=== PATIENT | male | born 1945 | race Caucasian/White ===

== ENCOUNTER 2017-01-23 18:10 | Emergency (ER) | payer MEDICARE, BC ==
[~2017-01-23] VITALS: Ht 182.9 cm; Wt 90.0 kg
[2017-01-23 18:11] VITALS: BP 140/93; TEMP 97.2
[2017-01-23] MEDS ORDERED: LIPITOR 10MG10 MG PO (18:18)
[2017-01-23] MEDS ORDERED: ZYLOPRIM 100MG100 MG PO (18:19)
[2017-01-23] MEDS ORDERED: PRINZIDE 12.5 M1 TA1 PO (18:19)
[2017-01-23 18:44] LABS: BASO % 0.4 % (0.0-2.0); EOS # 0.1 (0.0-0.7); EOS % 1.5 % (0-4.0); GRAN # 2.7 (1.4-6.5); GRAN % 58.3 % (42.2-75.2); HEMOGLOBIN 12.7 g/dl (13.5-18.0); LYMPH # 1.6 (1.2-3.4); LYMPH % 33.2 % (20.0-51.0); MEAN CELL VOLUME 99 fl (80.0-100.0); MEAN CORPUSCULAR HEMOGLOBIN 34 pg (27.0-31.0); MEAN CORPUSCULAR HGB CONC 35 g/dl (33.0-37.0); MONO # 0.3 (0.1-0.6); MONO % 6.2 % (1.7-9.3); PLATELET COUNT 137 K/mm3 (130-400); REDCELL DISTRIBUTION WIDTH-CV 12.9 % (11.5-14.5); WHITE BLOOD COUNT 4.7 K/mm3 (4.8-10.8)
[2017-01-23 18:48] LABS: HEMATOCRIT 36.5 % (42.0-52.0)
[2017-01-23 19:00] LABS: ALANINE AMINOTRANSFERASE 70 U/L (21-72); ALBUMIN 4.1 gm/dL (3.5-5.0); ALKALINE PHOSPHATASE 74 U/L (50-136); ANION GAP 15 mmol/L (7-16); BLOOD UREA NITROGEN 9 mg/dL (9-20); CALCIUM 9.1 mg/dL (8.4-10.2); CARBON DIOXIDE 23 mmol/L (22-30); CHLORIDE 99 mmol/L (98-107); CREATININE, serum 0.82 mg/dL (0.66-1.25); GLUCOSE 97 mg/dL (74-106); POTASSIUM 3.5 mmol/L (3.4-5.0); SODIUM 137 mmol/L (137-145)
[2017-01-23 19:05] LABS: C-REACTIVE PROTEIN < 0.5 mg/dL (0.0-0.9); LIPASE 3105 U/L (23-300)
[2017-01-23 19:09] LABS: TROPONIN-I < 0.012 ng/mL (0.000-0.034)
[2017-01-23 20:06] VITALS: PULSE 63
== END 2017-01-23 20:10 | disposition home or self-care (01) ==
LOC: COL.ER 18:10
PROVIDERS: Emergency Medicine
DX: K85.90 Acute pancreatitis without necrosis or infection, unspecified (principal); R07.9 Chest pain, unspecified; I10 Essential (primary) hypertension; E78.5 Hyperlipidemia, unspecified; F17.220 Nicotine dependence, chewing tobacco, uncomplicated

== ENCOUNTER → 2017-02-02 | Outpatient (CLI) | payer MEDICARE, BC ==
[~2017-02-02] MED LIST: LIPITOR 10MG10 MG PO; PRINZIDE 12.5 M1 TA1 PO; ZYLOPRIM 100MG100 MG PO
== END ==
LOC: COL.RAD 09:40
DX: K85.00 Idiopathic acute pancreatitis without necrosis or infection (principal); R74.8 Abnormal levels of other serum enzymes

== ENCOUNTER 2019-07-31 17:42 | Emergency (ER) | payer MEDICARE, BC ==
[~2019-07-31] VITALS: Ht 182.9 cm; Wt 90.9 kg
[2019-07-31 17:44] VITALS: TEMP 97.4
[2019-07-31] MEDS ORDERED: NORVASC2.5 MG PO (17:52)
[2019-07-31 19:17] LABS: PROTHROMBIN TIME 12.2 SECONDS (9.7-12.8)
[2019-07-31 19:22] LABS: BASO % 0.5 % (0.0-2.0); EOS % 0.6 % (0-4.0); HEMATOCRIT 35.6 % (42.0-52.0); HEMOGLOBIN 12.3 g/dl (13.5-18.0); LYMPH # 0.8 (1.2-3.4); LYMPH % 12.7 % (20.0-51.0); MEAN CELL VOLUME 99 fl (80.0-100.0); MEAN CORPUSCULAR HEMOGLOBIN 34 pg (27.0-31.0); MEAN CORPUSCULAR HGB CONC 35 g/dl (33.0-37.0); MEAN PLATELET VOLUME 9.2 fl (7.4-10.4); MONO # 0.4 (0.1-0.6); PLATELET COUNT 143 K/mm3 (130-400); RED BLOOD COUNT 3.58 M/mm3 (4.20-5.60); REDCELL DISTRIBUTION WIDTH-CV 12.6 % (11.5-14.5)
[2019-07-31 19:27] LABS: ALANINE AMINOTRANSFERASE 55 U/L (21-72); ALBUMIN 4.2 gm/dL (3.5-5.0); ALKALINE PHOSPHATASE 78 U/L (50-136); ANION GAP 13 mmol/L (7-16); AST,SGOT 112 U/L (15-37); BILIRUBIN,TOTAL 0.4 mg/dL (0.0-1.0); BLOOD UREA NITROGEN 11 mg/dL (9-20); CARBON DIOXIDE 23 mmol/L (22-30); CHLORIDE 103 mmol/L (98-107); CREATININE, serum 0.66 (0.66-1.25); GLUCOSE 94 mg/dL (74-106); LIPASE 419 U/L (23-300); POTASSIUM 3.8 mmol/L (3.4-5.0); SODIUM 139 mmol/L (137-145); TOTAL PROTEIN 6.8 gm/dL (6.4-8.2)
[2019-07-31 19:41] LABS: TROPONIN-I < 0.012 ng/mL (0.000-0.035)
[2019-07-31 23:05] VITALS: BP 130/93; PULSE 62
== END 2019-07-31 23:05 | disposition home or self-care (01) ==
LOC: COL.ER 17:42
PROVIDERS: Emergency Medicine
DX: R10.11 Right upper quadrant pain (principal); R10.12 Left upper quadrant pain; I10 Essential (primary) hypertension; E78.5 Hyperlipidemia, unspecified; F17.220 Nicotine dependence, chewing tobacco, uncomplicated
CPT/HCPCS: J2405; J3010; J7030; Q9967

== ENCOUNTER → 2019-08-05 | Outpatient (CLI) | payer MEDICARE, BC ==
[~2019-08-05] MED LIST changes: +NORVASC2.5 MG PO
== END ==
LOC: COL.RAD 09:19
DX: K76.0 Fatty (change of) liver, not elsewhere classified (principal)